=== PATIENT | female | born 1980 | race Asian ===

== ENCOUNTER 2017-12-30 20:18 | Emergency (ER) | payer BC ==
[~2017-12-30] VITALS: Ht 154.9 cm; Wt 49.1 kg
[2017-12-30 20:19] VITALS: BP 109/69
[2017-12-30 22:08] LABS: BASOPHILS % 0.7 % (0.0-2.0); CHLORIDE 105 mEq/L (98-107); EOSINOPHILS % 1.1 % (0.0-5.0); HEMATOCRIT. 37.9 % (36.0-48.0); HEMOGLOBIN. 13.1 g/dL (12.0-16.0); LYMPHOCYTES % 32.1 % (20.0-50.0); MEAN CORPUSCULAR HEMOGLOBIN 28.2 pg (28.0-32.0); MEAN CORPUSCULAR VOLUME 81.4 fL (81.0-99.0); MEAN PLATELET VOLUME 9.8 fl (7.4-10.4); MONOCYTES % 6.6 % (2.0-8.0); NEUTROPHILS % 59.5 % (40.0-76.0); PLATELET 228 x1000/uL (130-400); RED BLOOD CELL COUNT 4.65 mill/uL (4.2-5.4); RED CELL DISTRIBUTION WIDTH 13.1 % (11.6-14.6)
[2017-12-30 22:35] LABS: HEPATITIS B SURFACE ANTIGEN NEGATIVE
[2017-12-30 23:03] LABS: HEPATITIS B CORE AB IGM NEGATIVE
[2017-12-30 23:05] LABS: HEPATITIS A AB IGM NEGATIVE (NEGATIVE)
[2018-01-01 09:11] LABS: HIV SCREEN 4G Non Reactive (Non Reactive)
== END 2017-12-31 | disposition home or self-care (01) ==
LOC: ER 20:18
DX: Z77.21 Contact with and (suspected) exposure to potentially hazardous body fluids (principal)
CPT/HCPCS: 36415; 86705; 86709; 86803; 87340; 87389; 99284

== ENCOUNTER → 2020-09-20 | Outpatient (CLI) | payer OTHER | END | disposition home or self-care (01) | LOC: MRI 12:38 | PROVIDERS: ATTEND Family Medicine Adult Medicine | DX: M19.031 Primary osteoarthritis, right wrist (principal); M25.831 Other specified joint disorders, right wrist; M89.38 Hypertrophy of bone, other site; M25.531 Pain in right wrist | CPT/HCPCS: 73221 ==

== ENCOUNTER → 2021-01-12 | Outpatient (CLI) | payer BC ==
[2021-01-12 17:59] LABS: EOSINOPHILS % 1.8 % (0.0-5.0); HEMATOCRIT. 39.2 % (36.0-48.0); LYMPHOCYTES % 32.5 % (20.0-50.0); MEAN CORPUSCULAR HEMOGLOBIN 27.5 pg (28.0-32.0); MEAN CORPUSCULAR VOLUME 82.7 fL (81.0-99.0); MEAN PLATELET VOLUME 9.7 fl (7.4-10.4); MONOCYTES % 7.5 % (2.0-8.0); NEUTROPHILS % 57.2 % (40.0-76.0); PLATELET 235 x1000/uL (130-400); RED BLOOD CELL COUNT 4.74 mill/uL (4.2-5.4); RED CELL DISTRIBUTION WIDTH 12.8 % (11.6-14.6)
[2021-01-12 18:08] LABS: CHLORIDE 105 mEq/L (98-107)
[2021-01-12 18:12] LABS: AMYLASE 64 IU/L (25-115)
[2021-01-12 18:14] LABS: LDL CHOLESTEROL 61 mg/dL (5-100)
[2021-01-12 18:15] LABS: HDL CHOLESTEROL 49 mg/dL (40-59)
[2021-01-12 18:18] LABS: T4 FREE 1.03 ng/dL (0.76-1.46)
[2021-01-14 07:08] LABS: HAV IGM ANTIBODY Negative (Negative); HBSAG SCREEN Negative (Negative); HEPATITIS B CORE IGM AB Negative (Negative); HEPATITIS C AB <0.1 s/co ratio (0.0-0.9)
== END | disposition home or self-care (01) ==
LOC: LAB 17:25
PROVIDERS: ATTEND Physician Assistant
DX: R10.9 Unspecified abdominal pain (principal)
CPT/HCPCS: 36415; 80053; 80061; 80074; 80076; 82150; 82248; 84439; 84443; 84481; 85025

== ENCOUNTER → 2021-01-13 | Outpatient (CLI) | payer BC | END | disposition home or self-care (01) | LOC: CT 07:30 | DX: N32.89 Other specified disorders of bladder (principal) | CPT/HCPCS: 74176 ==